=== PATIENT | male | born 2005 | race Caucasian/White ===

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

== ENCOUNTER 2024-01-05 15:53 | Emergency (ER) | payer OTHER ==
[~2024-01-05] VITALS: Ht 182.9 cm; Wt 136.1 kg
[~2024-01-05 15:53] MED LIST changes: +Amoxicillin875 MG PO; +IBUP800 PO
[2024-01-05 16:04] VITALS: BP 172/109
[2024-01-05] MEDS ORDERED: AMOCLA875 PO (16:09)
[2024-01-05] MEDS ORDERED: Amoxicillin/Clavulanate K 875 MG Tab PO ONE (16:10)
== END 2024-01-05 16:20 | disposition home or self-care (01) ==
LOC: ER 15:53
DX: K08.89 Other specified disorders of teeth and supporting structures (principal); Z88.8 Allergy status to other drugs, medicaments and biological substances; Z79.899 Other long term (current) drug therapy
CPT/HCPCS: 99282; A9270